=== PATIENT | female | born 1950 | race Asian ===

== ENCOUNTER 2018-12-03 22:50 | Emergency (ER) | payer MEDICAID ==
[~2018-12-03] VITALS: Ht 165.1 cm; Wt 130.0 kg
[2018-12-03] MEDS ORDERED: LOSA25TA44 PO (23:13)
[2018-12-03 23:15] LABS: GLUCOSE,POINT OF CARE 142 MG/DL (70-110)
[2018-12-04] MEDS ORDERED: SODIUM CHLORIDE 0.9% 1,000 ML IV ONE
[2018-12-04] MEDS ORDERED: KETOROLAC TROMETHAMINE 30 MG/ML VIAL IVP ONE
[2018-12-04] MEDS ORDERED: MethylPREDNISolone SOD SUCC 125 MG/2 ML VIAL IVP ONE
[2018-12-04] MEDS ORDERED: CloNIDine HCL 0.2 MG TABLET PO ONE
[2018-12-04] MEDS ORDERED: CARISOPRODOL 350 MG TABLET PO ONE
[2018-12-04] MEDS ORDERED: HYDROCODONE/ACETAMINOPHEN 5-325 MG TABLET PO ONE (01:15)
[2018-12-04 03:03] VITALS: BP 140/84
== END 2018-12-04 03:04 | disposition home or self-care (01) ==
LOC: EMS 22:51 → EDBD 22:51 → EMS 12-04 03:04
DX: R51 Headache (principal); I10 Essential (primary) hypertension; E78.00 Pure hypercholesterolemia, unspecified; E11.9 Type 2 diabetes mellitus without complications
CPT/HCPCS: 82962; 96374; 96375; 99284; J1885; J2930; J7030

== ENCOUNTER 2018-12-20 19:17 | Emergency (ER) | payer MEDICAID ==
[~2018-12-20] VITALS: Ht 165.1 cm; Wt 68.8 kg
[~2018-12-20 19:17] MED LIST: ETOMIDATE 2 MG/ML 10 ML VIAL IVP ONE; LOSA25TA44 PO; SUCCINYLCHOLINE CHLORIDE 20 MG/ML 10 ML VIAL IVP ONE
[2018-12-20] MEDS ORDERED: PROPOFOL 1000 MG/ISO-OSM 100 ML IV PRN (19:30)
[2018-12-20 19:34] LABS: BASOPHILS % (AUTO) 0.3 % (0.0-2.0); EOSINOPHILS % (AUTO) 2.1 % (1.0-6.0); HEMATOCRIT 35.2 % (36-46); HEMOGLOBIN 11.8 g/dL (12.0-16.0); LYMPHOCYTES # (AUTO) 8.4 K/uL (1.0-4.8); LYMPHOCYTES % (AUTO) 61.6 % (22.0-44.0); MEAN CORPUSCULAR HEMOGLOBIN 31.4 pg (26.0-34.0); MEAN CORPUSCULAR HGB CONC 33.5 G/dL (31.0-37.0); MEAN CORPUSCULAR VOLUME 94 fL (80-100); MONOCYTES # (AUTO) 0.9 K/uL (0.1-1.0); MONOCYTES % (AUTO) 6.7 % (2.0-9.0); NEUTROPHILS % (AUTO) 29.3 % (40.0-70.0); PLATELET COUNT (AUTO) 303 K/uL (150-450); RED BLOOD CELL COUNT(AUTO) 3.75 MIL/uL (4.00-5.20); RED CELL DISTRIBUTION WIDTH 14.9 % (11.5-14.5)
[2018-12-20 19:46] LABS: ALANINE AMINOTRANSFERASE 21 U/L (12-78); ALBUMIN 3.9 g/dL (3.4-5.0); ALKALINE PHOSPHATASE 75 U/L (46-116); ANION GAP 12 mmol/L (8-16); ASPARTATE AMINOTRANSFERASE 32 U/L (15-37); BILIRUBIN,TOTAL 0.5 mg/dL (0.1-1.0); CALCIUM, TOTAL 9.3 mg/dL (8.8-10.5); CARBON DIOXIDE 25 mmol/L (22-29); CHLORIDE 103 mmol/L (98-107); CREATININE 0.84 mg/dL (0.60-1.30); GLOMERULAR FILTR. RATE CALC > 60 mL/min (>60); GLUCOSE,RANDOM 146 mg/dL (70-110); SODIUM SERUM 140 mmol/L (136-145); UREA NITROGEN, BLOOD 13 mg/dL (7-18)
[2018-12-20 19:47] LABS: POTASSIUM 2.7 mmol/L (3.5-5.1)
[2018-12-20 19:48] LABS: PROTHROMBIN TIME 10.3 SEC (9.4-11.6)
[2018-12-20] MEDS ORDERED: IOVERSOL 320 MG/ML 100 ML VIAL ONE (20:15)
[2018-12-20] MEDS ORDERED: FentaNYL CITRATE-PF 100 MCG/2 ML VIAL IVP ONE (20:30)
[2018-12-20] MEDS ORDERED: MIDAZOLAM HCL 2 MG/2 ML VIAL IVP ONE ×2 (20:30→22:15)
[2018-12-20] MEDS: POTASSIUM CHL 10 MEQ/WATER 50 ML IV SCH ×2 (20:39→21:42)
[2018-12-20 20:58] LABS: APPEARANCE,URINE CLEAR (CLEAR); BILIRUBIN,URINE NEGATIVE (NEGATIVE); GLUCOSE, URINE (UA) NEGATIVE (NEGATIVE); KETONES,URINE NEGATIVE (NEGATIVE); LEUKOCYTE ESTERASE ,URINE NEGATIVE (NEGATIVE); NITRATE,URINE NEGATIVE (NEGATIVE); OCCULT BLOOD,URINE NEGATIVE (NEGATIVE); PH,URINE 7.5 (5.0-8.0); PROTEIN,URINE NEGATIVE (NEGATIVE); UROBILINOGEN,URINE 0.2 mg/dL (<=1.0)
[2018-12-20 21:03] LABS: AMPHET/METH SCREEN,URINE NEGATIVE (NEGATIVE); BARBITURATE SCREEN, URINE NEGATIVE (NEGATIVE); BENZODIAZEPINES SCREEN,URINE NEGATIVE (NEGATIVE); CANNABINOID SCREEN,URINE NEGATIVE (NEGATIVE); COCAINE SCREEN,URINE NEGATIVE (NEGATIVE); METHADONE SCREEN, URINE NEGATIVE (NEGATIVE); OPIATE SCREEN,URINE NEGATIVE (NEGATIVE); PHENCYCLIDINE SCREEN,URINE NEGATIVE (NEGATIVE)
[2018-12-20 21:07] LABS: BACTERIA,URINE Rare /HPF (None Seen); RBC,URINE 0-2 /HPF (0-2); SQUAMOUS EPITHELIAL CELL,UR Few /LPF (None Seen); WBC,URINE 0-2 /HPF (0-5)
[2018-12-20 21:12] LABS: ABG A-A DIFF O2 102.5 mmHg (10-20.0); ABG BASE EXCESS 0.5 mmol/L (-2.0-3.0); ABG CARBOXYHEMOGLOBIN 0.3 % (0.0-1.5); ABG HCO3 25.2 mmol/L (22.0-26.0); ABG METHEMOGLOBIN 0.3 % (0.0-1.5); ABG OXYGEN CONTENT 17.4 mL/dL (15.0-23.0); ABG OXYGEN SATURATION 99.2 % (95.0-98.0); ABG OXYHEMOGLOBIN 98.6 % (94.0-100.0); ABG PCO2 36 mmHg (35-45); ABG PH 7.448 (7.35-7.450); ABG TOTAL HEMOGLOBIN 12.2 G/dL (12.0-18.0); O2 DEVICE,BLOOD GAS VENTILATOR (ROOM AIR); PEEP,BG 5 cm H2O; PO2, ARTERIAL BG 213.2 mmHg (79.0-87.0); SITE, BLOOD GAS RT RADIAL; SOURCE, BLOOD GAS ARTERIAL; SPONTANEOUS VT, BG 423 ml; TEMPERATURE, FAHRENHEIT, BG 98.6 FAHREN (96.0-98.6); VT, ABG 450 ml
[2018-12-20 21:58] VITALS: BP 133/87
== END 2018-12-20 22:03 | disposition short-term general hospital (02) ==
LOC: EMS 19:19
DX: I62.00 Nontraumatic subdural hemorrhage, unspecified (principal); E87.6 Hypokalemia; E11.9 Type 2 diabetes mellitus without complications; E78.00 Pure hypercholesterolemia, unspecified; I10 Essential (primary) hypertension
CPT/HCPCS: 31500; 36415; 36600; 70450; 70496; 71045; 80053; 80307; 81001; 82805; 82962; 84484; 85025; 85610; 85730; 93005; 96365; 96375; 96376; 99291; J0330; J2250; J2704; J3010; J3480; J3490; Q9967; 94002

== ENCOUNTER 2021-04-23 16:31 | Emergency (ER) | payer MEDICAID, OTHER ==
[~2021-04-23] VITALS: Ht 162.6 cm; Wt 65.0 kg
[~2021-04-23 16:31] MED LIST changes: -ETOMIDATE 2 MG/ML 10 ML VIAL IVP ONE; +LOSA25TA41 PO; -LOSA25TA44 PO; -SUCCINYLCHOLINE CHLORIDE 20 MG/ML 10 ML VIAL IVP ONE
[2021-04-23 17:51] VITALS: BP 158/85
[2021-04-23] MEDS ORDERED: DOCUSATE SODIUM 100 MG CAPSULE PO ONE (18:15)
[2021-04-23] MEDS ORDERED: HYDROCORTISONE 0.5% 30 GM CREAM TP ONE (18:15)
== END 2021-04-23 19:20 | disposition home or self-care (01) ==
LOC: EMS 16:32
DX: K64.4 Residual hemorrhoidal skin tags (principal)
CPT/HCPCS: 99283

== ENCOUNTER 2021-09-21 10:11 | Day surgery (SDC) | payer OTHER ==
[2021-09-18 12:03] LABS: COVID AG,FIA SOURCE NASAL SWAB
[~2021-09-21] VITALS: Ht 160 cm; Wt 54.5 kg
[~2021-09-21 10:11] MED LIST changes: +ASPI-1515 PO; +GABA-529 PO; +LOSA100T58 PO; -LOSA25TA41 PO; +SERT-438 PO; +SIMV-46 PO; +SODIUM CHLORIDE 0.9% 1,000 ML ONE
[2021-09-21] MEDS ORDERED: SODIUM CHLORIDE 0.9% 1,000 ML IV ONE (10:30)
[2021-09-21] MEDS ORDERED: LIDOCAINE/PF 2% 5 ML VIAL IM ONE (12:00)
[2021-09-21] MEDS ORDERED: PROPOFOL 1% 20 ML VIAL IVP ONE (12:00)
== END 2021-09-21 14:25 | disposition home or self-care (01) ==
LOC: SURGERY 10:11
PROVIDERS: ATTEND Internal Medicine Gastroenterology
DX: D12.5 Benign neoplasm of sigmoid colon (principal); K57.30 Diverticulosis of large intestine without perforation or abscess without bleeding; K64.8 Other hemorrhoids; K64.4 Residual hemorrhoidal skin tags; Z79.899 Other long term (current) drug therapy; Z98.890 Other specified postprocedural states; Z79.82 Long term (current) use of aspirin; Z79.01 Long term (current) use of anticoagulants
CPT/HCPCS: 45385; 87426; 93005; C9803; J2704; J3490; J7030; 88305

== ENCOUNTER 2023-09-14 16:33 | Emergency (ER) | payer OTHER ==
[~2023-09-14] VITALS: Ht 162.6 cm; Wt 65.0 kg
[~2023-09-14 16:33] MED LIST changes: -LOSA100T58 PO; +LOSA100T59 PO; -SODIUM CHLORIDE 0.9% 1,000 ML ONE
[2023-09-14 16:50] VITALS: BP 144/83; PULSE 73; RESP 16; TEMP 98
[2023-09-14] MEDS ORDERED: ALEN70TA65 PO (16:52)
[2023-09-14] MEDS ORDERED: RIVA1PAT12 TP (16:52)
[2023-09-14] MEDS ORDERED: CALC-462 PO (16:52)
[2023-09-14 17:43] LABS: BASOPHILS % (AUTO) 0.5 % (0.0-2.0); EOSINOPHILS % (AUTO) 1.4 % (1.0-6.0); HEMATOCRIT 40.9 % (36-46); HEMOGLOBIN 14.2 g/dL (12.0-16.0); LYMPHOCYTES % (AUTO) 37.2 % (22.0-44.0); MEAN CORPUSCULAR HEMOGLOBIN 33.3 pg (26.0-34.0); MEAN CORPUSCULAR HGB CONC 34.8 G/dL (31.0-37.0); MEAN CORPUSCULAR VOLUME 96 fL (80-100); MONOCYTES # (AUTO) 0.7 K/uL (0.1-1.0); MONOCYTES % (AUTO) 8.3 % (2.0-9.0); NEUTROPHILS # (AUTO) 4.2 K/uL (1.8-7.7); NEUTROPHILS % (AUTO) 52.6 % (40.0-70.0); PLATELET COUNT (AUTO) 218 K/uL (150-450); RED BLOOD CELL COUNT(AUTO) 4.28 MIL/uL (4.00-5.20); RED CELL DISTRIBUTION WIDTH 13.2 % (11.5-14.5)
[2023-09-14 17:54] LABS: CREATININE 1.06 mg/dL (0.60-1.30)
[2023-09-14 17:58] LABS: POTASSIUM 3.7 mmol/L (3.5-5.1)
[2023-09-14] MEDS ORDERED: ACET-66 PO (19:40)
[2023-09-14] MEDS: ACETAMINOPHEN 500 MG TABLET PO ONE (19:58)
== END 2023-09-14 20:10 | disposition home or self-care (01) ==
LOC: EMS 16:35
DX: S00.03XA Contusion of scalp, initial encounter (principal); S16.1XXA Strain of muscle, fascia and tendon at neck level, initial encounter; I10 Essential (primary) hypertension; Z86.73 Personal history of transient ischemic attack (TIA), and cerebral infarction without residual deficits; W01.0XXA Fall on same level from slipping, tripping and stumbling without subsequent striking against object, initial encounter; Y93.89 Activity, other specified; Y92.89 Other specified places as the place of occurrence of the external cause; Y99.8 Other external cause status
CPT/HCPCS: 70450; 72125; 80048; 85025; 99284

== ENCOUNTER 2024-05-03 08:06 | Emergency (ER) | payer OTHER ==
[~2024-05-03] VITALS: Ht 165.1 cm; Wt 83.2 kg
[~2024-05-03 08:06] MED LIST changes: +ACET-66 PO; +ALEN70TA65 PO; +CALC-462 PO; +RIVA1PAT12 TP
[2024-05-03 08:17] VITALS: TEMP 98.7
[2024-05-03 09:11] LABS: ANION GAP 7 mmol/L (8-16); CALCIUM, TOTAL 9.4 mg/dL (8.8-10.5); CARBON DIOXIDE 30 mmol/L (22-29); CHLORIDE 102 mmol/L (98-107); CREATININE 0.77 mg/dL (0.60-1.30); GLOMERULAR FILTR. RATE CALC > 60 mL/min (>60); GLUCOSE,RANDOM 152 mg/dL (70-110); POTASSIUM 3.8 mmol/L (3.5-5.1); SODIUM SERUM 139 mmol/L (136-145); UREA NITROGEN, BLOOD 12 mg/dL (7-18)
[2024-05-03 09:14] LABS: LIPASE 30 U/L (16-77)
[2024-05-03 09:17] LABS: BASOPHILS % (AUTO) 0.3 % (0.0-2.0); EOSINOPHILS % (AUTO) 0.1 % (1.0-6.0); HEMATOCRIT 41.9 % (36-46); HEMOGLOBIN 14.2 g/dL (12.0-16.0); LYMPHOCYTES # (AUTO) 1.6 K/uL (1.0-4.8); LYMPHOCYTES % (AUTO) 14.8 % (22.0-44.0); MEAN CORPUSCULAR HEMOGLOBIN 32.7 pg (26.0-34.0); MEAN CORPUSCULAR HGB CONC 33.9 G/dL (31.0-37.0); MEAN CORPUSCULAR VOLUME 97 fL (80-100); MONOCYTES # (AUTO) 0.4 K/uL (0.1-1.0); MONOCYTES % (AUTO) 3.8 % (2.0-9.0); NEUTROPHILS # (AUTO) 8.7 K/uL (1.8-7.7); RED BLOOD CELL COUNT(AUTO) 4.34 MIL/uL (4.00-5.20); RED CELL DISTRIBUTION WIDTH 13.3 % (11.5-14.5); WHITE BLOOD COUNT (AUTO) 10.8 K/uL (4.5-11.0)
[2024-05-03 09:33] LABS: COVID AG,FIA SOURCE NASAL SWAB
[2024-05-03 09:57] LABS: SARS-COV2 (COVID) ANTIGEN,FIA Negative (Negative)
[2024-05-03 09:58] LABS: INFLUENZA TYPE A NEGATIVE FOR TYPE A (NEGATIVE); INFLUENZA TYPE B NEGATIVE FOR TYPE B (NEGATIVE)
[2024-05-03 10:33] LABS: PLATELET COUNT (AUTO) 233 K/uL (150-450)
[2024-05-03] MEDS ORDERED: ARIP5TAB37 PO (10:50)
[2024-05-03] MEDS ORDERED: PROP10DR4 OU (10:50)
[2024-05-03] MEDS ORDERED: SERT-439 PO (10:50)
[2024-05-03] MEDS ORDERED: RIVA1PAT TD (10:50)
[2024-05-03] MEDS: MECLIZINE HCL 25 MG TABLET PO ONE ×2 (10:59→11:41)
[2024-05-03] MEDS: SODIUM CHLORIDE 0.9% 500 ML IV ONE (10:59)
[2024-05-03] MEDS: ONDANSETRON 4 MG TABLET PO ONE (10:59)
[2024-05-03 11:11] VITALS: BP 170/81; PULSE 68; RESP 16; O2SAT 97
[2024-05-03] MEDS ORDERED: MECL-302 PO (11:56)
[2024-05-03] MEDS ORDERED: ONDA-104 PO (11:56)
== END 2024-05-03 12:21 | disposition home or self-care (01) ==
LOC: EMS 08:14
DX: R11.2 Nausea with vomiting, unspecified (principal); I10 Essential (primary) hypertension; Z79.82 Long term (current) use of aspirin; Z86.73 Personal history of transient ischemic attack (TIA), and cerebral infarction without residual deficits; Z79.899 Other long term (current) drug therapy; Z20.822 Contact with and (suspected) exposure to COVID-19
CPT/HCPCS: 99283; 96360; 87426; 80048; 83690; 85025; 87804; 36415; Q0162; J7030